=== PATIENT | female | born 1995 | race Caucasian/White ===

== ENCOUNTER 2017-03-09 20:29 | Emergency (ER) | payer OTHER ==
[~2017-03-09] VITALS: Ht 160 cm; Wt 86.4 kg
[~2017-03-09 20:29] MED LIST: PREN1TAB26 PO
[2017-03-09 23:48] VITALS: BP 110/86
== END 2017-03-10 01:08 | disposition left against medical advice (07) ==
LOC: EMS 20:32
DX: F41.9 Anxiety disorder, unspecified (principal); Z53.21 Procedure and treatment not carried out due to patient leaving prior to being seen by health care provider
CPT/HCPCS: 93005